=== PATIENT | male | born 1990 | race African-American/Black ===

== ENCOUNTER 2018-01-10 14:31 | Observation (INO) | payer OTHER ==
[~2018-01-10] VITALS: Ht 177.8 cm; Wt 80.0 kg
[2018-01-10 14:54] VITALS: BP 154/94; PULSE 82; RESP 18; TEMP 98.7; O2SAT 98
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
[2018-01-10] MEDS ORDERED: SODIUM CHLORIDE 0.9% FLUSH 10 ML FLUSH IVF PRN (15:15)
[2018-01-10] MEDS ORDERED: LORazepam 2 MG/ML VIAL IM ONE (15:45)
[2018-01-10] MEDS ORDERED: HALOPERIDOL LACTATE 5 MG/ML AMP IM ONE (15:45)
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
[2018-01-10 17:17] LABS: AUTOMATED NEUTROPHIL # 6.9 TH/MM3 (1.8-7.7); BASOPHIL # 0.1 TH/MM3 (0-0.2); BASOPHIL % 0.5 % (0.0-2.0); EOSINOPHIL % 0.2 % (0.0-4.0); HEMATOCRIT 41.8 % (39.0-51.0); HEMOGLOBIN 14.3 GM/DL (13.0-17.0); LYMPH % 23.7 % (9.0-44.0); LYMPHOCYTE # 2.6 TH/MM3 (1.0-4.8); MEAN CELL VOLUME 91.7 FL (80.0-100.0); MEAN CORPUSCULAR HEMOGLOBIN 31.3 PG (27.0-34.0); MEAN CORPUSCULAR HGB CONC 34.1 % (32.0-36.0); MEAN PLATELET VOLUME 8.1 FL (7.0-11.0); MONO % 11.9 % (0.0-8.0); MONOCYTE # 1.3 TH/MM3 (0-0.9); NEUT % 63.7 % (16.0-70.0); PLATELET COUNT 310 TH/MM3 (150-450); RED BLOOD COUNT 4.56 MIL/MM3 (4.50-5.90); RED CELL DISTRIBUTION WIDTH 11.7 % (11.6-17.2); WHITE BLOOD COUNT 10.9 TH/MM3 (4.0-11.0)
[2018-01-10 17:27] LABS: INTERNATIONAL NORMALIZED RATIO 1.1 RATIO; PROTHROMBIN TIME - PATIENT 11.4 SEC (9.8-11.6)
[2018-01-10] MEDS ORDERED: SODIUM CHLOR 0.9% 1000 ML INJ 1,000 ML IV ONE ×3 (17:30→18:45)
[2018-01-10 17:40] VITALS: BP 120/62; PULSE 94; RESP 19; O2SAT 95
[2018-01-10 17:46] LABS: ALBUMIN 4.4 GM/DL (3.4-5.0); ALT (GPT) 15 U/L (12-78); AST (GOT) 20 U/L (15-37); BICARBONATE 15.6 MEQ/L (21.0-32.0); BLOOD UREA NITROGEN 12 MG/DL (7-18); CALCIUM 9.3 MG/DL (8.5-10.1); CHLORIDE 104 MEQ/L (98-107); GLOMERULAR FILTRATION RATE 52 ML/MIN (>89); GLUCOSE,RANDOM 124 MG/DL (74-106); SODIUM (NA) 141 MEQ/L (136-145)
[2018-01-10 17:56] LABS: ALKALINE PHOSPHATASE 74 U/L (45-117); TOTAL BILIRUBIN ADULT 1.9 MG/DL (0.2-1.0); TOTAL PROTEIN 8.3 GM/DL (6.4-8.2)
--- NOTE | 2018-01-10 18:04 | RADRPT ---
EXAM DATE/TIME: 01/10/2018 17:53 [facility] COMPARISON: No previous studies available for comparison. INDICATIONS : Altered mental status; nonverbal. RADIATION DOSE: 56.35 CTDIvol (mGy) MEDICAL HISTORY : None SURGICAL HISTORY : None. ENCOUNTER: Initial ACUITY: 1 day PAIN SCALE: Non-responsive LOCATION: cranial TECHNIQUE: Multiple contiguous axial images were obtained of the head. Using automated exposure control and adj ustment of the mA and/or kV according to patient size, radiation dose was kept as low as reasonably a chievable to obtain optimal diagnostic quality images. DICOM format image data is available electro nically for review and comparison. FINDINGS: CEREBRUM: The ventricles are normal for age. No evidence of midline shift, mass lesion, hemorrhage or acute in farction. No extra-axial fluid collections are seen. POSTERIOR FOSSA: The cerebellum and brainstem are intact. The 4th ventricle is midline. The cerebellopontine angle i s unremarkable. EXTRACRANIAL: The visualized portion of the orbits is intact. SKULL: The calvaria is intact. No evidence of skull fracture. CONCLUSION: 1. No acute intracranial abnormality. Luis Lorenzo MD on January 10, 2018 at 18:01 Board Certified Radiologist. This report was verified electronically.
[2018-01-10] MEDS ORDERED: LACTULOSE SYRUP 20 GM/30 ML CUP PO ONE ×2 (18:15→23:00)
[2018-01-10 18:23] LABS: BILIRUBIN, URINE NEG (NEG); BLOOD, URINE NEG (NEG); GLUCOSE,URINE NEG (NEG); KETONE, URINE 10 mg/dL (NEG); MUCUS URINE MANY /lpf (OCC); NITRITE,URINE NEG (NEG); PH, URINE 6.5 (5.0-8.5); SQUAMOUS EPITHELIAL CELL URINE <1 /hpf (0-5); URINE COLOR YELLOW (YELLW/STRAW); URINE LEUKOCYTE ESTERASE NEG (NEG)
[2018-01-10] MEDS ORDERED: SODIUM CHLORIDE 0.9% FLUSH 10 ML FLUSH IV FLUSH PRN (19:00)
[2018-01-10] MEDS ORDERED: POTASSIUM CHLORIDE 20 MEQ CONTROLLED RELEASE TAB PO ONE (19:00)
[2018-01-10] MEDS ORDERED: NALOXONE HCL 0.4 MG/ML AMP IV PUSH PRN (19:00)
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
[2018-01-10 20:00] VITALS: BP 134/82; PULSE 68; RESP 16; O2SAT 98
[2018-01-10] MEDS: SODIUM CHLOR 0.9% 1000 ML INJ 1,000 ML IV SCH (20:00)
[2018-01-10] MEDS: SODIUM CHLORIDE 0.9% FLUSH 10 ML FLUSH IV FLUSH SCH (21:00)
[2018-01-10 21:39] VITALS: BP 123/83; PULSE 88; RESP 16; TEMP 98.2; O2SAT 98
[2018-01-11 04:34] VITALS: BP 108/59; PULSE 66; RESP 14; TEMP 98.9; O2SAT 96
[2018-01-11] MEDS: SODIUM CHLOR 0.9% 1000 ML INJ 1,000 ML IV SCH ×2 (06:40→12:00)
[2018-01-11 06:56] LABS: BASOPHIL % 0.7 % (0.0-2.0); EOSINOPHIL # 0.2 TH/MM3 (0-0.4); HEMATOCRIT 33.9 % (39.0-51.0); HEMOGLOBIN 11.7 GM/DL (13.0-17.0); LYMPH % 28.9 % (9.0-44.0); LYMPHOCYTE # 1.6 TH/MM3 (1.0-4.8); MEAN CELL VOLUME 90.9 FL (80.0-100.0); MEAN CORPUSCULAR HEMOGLOBIN 31.3 PG (27.0-34.0); MEAN CORPUSCULAR HGB CONC 34.4 % (32.0-36.0); MEAN PLATELET VOLUME 7.7 FL (7.0-11.0); MONO % 12.6 % (0.0-8.0); MONOCYTE # 0.7 TH/MM3 (0-0.9); NEUT % 54.8 % (16.0-70.0); PLATELET COUNT 205 TH/MM3 (150-450); RED BLOOD COUNT 3.73 MIL/MM3 (4.50-5.90); RED CELL DISTRIBUTION WIDTH 11.7 % (11.6-17.2); WHITE BLOOD COUNT 5.5 TH/MM3 (4.0-11.0)
[2018-01-11 07:14] VITALS: BP 94/51; PULSE 70; RESP 18; TEMP 98.7; O2SAT 99
[2018-01-11 07:25] LABS: BICARBONATE 23.3 MEQ/L (21.0-32.0); CALCIUM 7.9 MG/DL (8.5-10.1); CREATININE 0.77 MG/DL (0.60-1.30)
[2018-01-11 08:02] VITALS: PULSE 60
[2018-01-11] MEDS: SODIUM CHLORIDE 0.9% FLUSH 10 ML FLUSH IV FLUSH SCH (09:00)
[2018-01-11 11:31] VITALS: BP 119/82; PULSE 81; RESP 18; TEMP 98.2
--- NOTE | 2018-01-11 12:22 | HHI.DCPOC ---
Discharge Care Plan Diagnosis: (1) Substance abuse (2) Metabolic acidosis (3) Altered mental status, unspecified (4) Increased ammonia level Goals to Promote Your Health * To prevent worsening of your condition and complications * To maintain your health at the optimal level Directions to Meet Your Goals Take your medications as prescribed Follow your dietary instruction Follow activity as directed Keep your appointments as scheduled Take your immunizations and boosters as scheduled If your symptoms worsen call your PCP, if no PCP go to Urgent Care Center or Emergency Room Smoking is Dangerous to Your Health. Avoid second hand smoke Call the 24-hour hour crisis hotline for domestic abuse at Domo Miller MD Jan 11, 2018 12:22
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
--- NOTE | 2018-01-11 14:09 | MG ---
cc: Bhavin Cruz MD EEG RECORD NUMBER: [id number] DATE OF : 1990. INDICATION: A 27-year-old apparently with history of confusion. FINDINGS: 8-9 Hz alpha activity noted, 20-40 microvolts. Good anterior to posterior gradient. Attenuation of background with episodes of drowsiness. Single-lead EKG showed sinus rhythm followed by stage I and stage II sleep with the appearance of spindles. Reasonable driving with photic stimulation. IMPRESSION: Normal awake and sleep EEG. Clinical correlation. Bhavin Cruz MD MG/SB , 01:49 PM , 02:08 PM
--- NOTE | 2018-01-11 21:30 | EKG ---
Date Performed: 01/10/2018 Time Performed: 17:20:41 PTAGE: 27 years EKG: SINUS TACHYCARDIA BORDERLINE LEFT AXIS DEVIATION ABNORMAL RHYTHM ECG NO PREVIOUS TRACING DOCTOR: Arsalan Romero Interpretating Date/Time 01/11/2018 21:29:50
== END 2018-01-11 13:12 | disposition home or self-care (01) ==
LOC: NEPD 14:31 → NEDA 18:49 → NEPHCDU 20:24
PROVIDERS: ADMIT Hospitalist; ATTEND Hospitalist
DX: E72.20 Disorder of urea cycle metabolism, unspecified (principal); E87.2 Acidosis; E87.6 Hypokalemia; F19.159 Other psychoactive substance abuse with psychoactive substance-induced psychotic disorder, unspecified; R00.0 Tachycardia, unspecified; R94.31 Abnormal electrocardiogram [ECG] [EKG]; N17.9 Acute kidney failure, unspecified; G92 Toxic encephalopathy; F17.200 Nicotine dependence, unspecified, uncomplicated
CPT/HCPCS: 36600; 70450; 80048; 80053; 80307; 81001; 82140; 82550; 82552; 82805; 84443; 85025; 85610; 85730; 93005; 95819; 96360; 96361; 96372; 99285; G0378; J1630; J2060; J7030